=== PATIENT | male | born 1985 | race Caucasian/White ===

== ENCOUNTER 2023-09-23 16:33 | Emergency (ER) | payer MEDICAID, SELFPAY ==
--- NOTE | ~2023-09-23 | XR_ITS ---
EXAMINATION: XR HAND, RIGHT CLINICAL INFORMATION: Injury. Pain. COMPARISON: None available. TECHNIQUE: PA, lateral, and oblique views of the right hand. FINDINGS: There is a comminuted nondisplaced fracture of the distal tuft of the third finger. No other fracture is seen. Joint spaces are normal. There is evidence of trauma to the soft tissues of the distal third and fourth fingers. XR/XR hand RT min 3V IMPRESSION: Comminuted fracture of the distal tuft of the third finger.
--- NOTE | 2023-09-23 16:42 | ED.GENADULT ---
HPI - General Adult General Chief complaint: Extremity Injury, Upper Stated complaint: R hand injury Time Seen by Provider: 09/23/23 17:48 Source: patient Mode of arrival: ambulatory Limitations: no limitations History of Present Illness HPI narrative: Patient is a 38 year old assigned male at with no reported medical history presenting to the emergency department today with right 3rd digit pain. Patient states that while he was playing basketball, a shot put ball came down from the hill above and smashed his fingers against the basketball as he was going to shoot the ball. Patient denies any head strike or loss of consciousness with the incident. Patient states that he does not know when his last tetanus shot was. Patient denies any dizziness, lightheadedness, abdominal pain, nausea, vomiting, fever, chills, blurry vision, double vision, loss of vision, chest pain, difficulty breathing, shortness of breath, back pain, night sweats, pain with urination, increased urinary frequency, increased urinary urgency, blood in his urine or stool, syncope or a near syncopal episode, bowel incontinence, bladder incontinence, bowel retention, bladder retention, or any other complaints at this time. Onset (ago): minute(s) Location: right (3rd finger) Severity: mild Severity scale (1-10): 4 Quality: aching Pain Consistency: constant Relieving factors: immobilization Exacerbating factors: movement Associated symptoms: denies other symptoms Treatments prior to arrival: none Related Data Previous Rx's ?Medication ?Instructions ?Recorded amoxicillin 875 mg-potassium 1 tab PO BID 10 days #20 tabs 09/23/23 clavulanate 125 mg tablet Allergies Allergy/AdvReac Type Severity Reaction Status Date / Time No Known Allergies Allergy Verified 09/23/23 16:46 Review of Systems Constitutional: Constitutional: Reports no additional constitutional complaints, Denies chills, Denies fever(s) and Denies night sweats Eyes: Eyes: Reports no additional eye complaints, Denies blurry vision, Denies change in vision, Denies diplopia, Denies eye discharge, Denies loss of vision and Denies eye pain ENT: Denies dizziness Cardiovascular: Cardiovascular: Reports no additional cardiovascular complaints, Denies chest pain, Denies lightheadedness, Denies Loss of Consciousness and Denies dyspnea Respiratory: Respiratory: Reports no additional respiratory complaints and Denies dyspnea Gastrointestinal: Gastrointestinal: Reports no additional gastrointestinal complaints, Denies abdominal pain, Denies melena, Denies hematochezia, Denies change in bowel habits and Denies change in stool character Genitourinary: Genitourinary: Reports no additional male genitourinary complaints, Denies hematuria, Denies oliguria, Denies difficulty urinating, Denies dysuria, Denies urinary frequency, Denies urinary hesitancy, Denies urinary incontinence and Denies urinary urgency Musculoskeletal: Musculoskeletal: Reports no additional musculoskeletal complaints, Denies numbness and Denies tingling Comments: right 3rd digit injury / pain Neurologic: Denies dizziness, Denies loss of vision, Denies numbness and Denies tingling Psychiatric: Psychiatric: Reports no additional psychiatric complaints Endocrine: Endocrine: Reports no additional endocrine complaints Hematologic/Lymphatic: Hematologic/Lymphatic: Reports no additional hematologic/lymphatic complaints Allergic/Immunologic: Allergic/Immunologic: Reports no additional allergic/immunologic complaints PMFSH Past Medical History Attestation statement: The following information was validated with the patient. Source: old records reviewed and nursing notes reviewed Social History Social History Smoked in Last 30 Days: No Use of substances other than those prescribed or required for medical reasons: No Advance Directives: No Advance Directives Information Provided: No Do you have a plan to hurt others: No Plan Physical Exam ED Vital Signs: Vital Signs - 24 hr 09/23/23 16:44 09/23/23 19:10 09/23/23 19:22 Temperature 96.4 F L 97.8 F 97.8 F Pulse Rate 70 70 70 Respiratory Rate 18 20 20 Blood Pressure 121/80 124/80 124/80 Pulse Oximetry 100 100 100 Oxygen Delivery Method Room Air Room Air Room Air BMI result Body Mass Index 28.3 Const General: cooperative, no acute distress, alert and awake Nutritional Appearance: well nourished Orientation/consciousness: patient oriented x3 Limitations: no limitations HENMT Head: Yes normal to inspection and Yes atraumatic Ears: hearing grossly normal bilaterally and external ears normal General nose exam: Normal external nose present, no nasal discharge noted and no epistaxis Face and sinus: Yes normal facial exam, No abrasion and No laceration Mouth: Normal oral and palatal mucosa present, no drooling and no muffled voice Eyes General: appearance normal, both eyes and all related structures Periorbital: periorbital findings normal Eyelids: Yes eyelids normal Conjunctivae: conjunctivae normal Pupils: Equal, round and reactive pupils present EOM: EOMs intact bilaterally Neck Neck: Yes normal visual inspection, Yes full ROM and Yes no lymphadenopathy Chest Chest palpation & inspection: normal inspection of the chest Resp Effort & Inspection: normal respiratory effort and able to speak in complete sentences GI Inspection: Yes normal to inspection Neuro General: patient oriented x3 and moves all extremities Cranial nerves: Yes Equal, round and reactive pupils present Cognition (Neuro): normal cognition Motor exam (neuro): 5/5 motor strength present throughout Sensory Exam: Normal double simultaneous stimulation for sensation Coordination: [id number] test normal Extrem Other: right 3rd digit bruising and swelling with a small laceration on the palmar aspect of the 3rd digit tip General: Yes full ROM and Yes capillary refill normal Psych Appearance: grossly normal Mental Status: mental status grossly normal Affect: normal affect Attitude: cooperative Thought process: Normal thought process present Thought content: Normal thought content present Insight: Good insight present (Psych) Course Course Course Narrative: RME performed by Raven Dean PA-C. Patient is a 38 year old assigned male at presenting to the emergency department with right 3rd finger injury. Patient states that while he was playing basketball, a shot put ball came down from the hill above and smashed his fingers against the basketball as he was going to shoot the ball. Patient denies any loss of consciousness with the incident. Patient states that he does not know when his last tetanus shot was. Detailed physical exam and review of systems are deferred to the mechanical engineering specialist. Imaging ordered. Patient placed back in the waiting room pending room availability and results. Medications Administered Discontinued Medications Generic Name Dose Route Start Last Admin Trade Name Freq PRN Reason Stop Dose Admin Acetaminophen 975 mg 09/23/23 16:44 09/23/23 16:56 Acetaminophen 325 Mg Tablet PO 09/23/23 16:45 975 mg ONCE ONE Administration Diphtheria/Tetanus/Acell Pertussis 0.5 ml 09/23/23 16:43 09/23/23 17:45 Diphth,Pertus(Acell),Tet Adult 0.5 Ml Syringe IM 09/23/23 16:44 0.5 ml .ONCE ONE Administration Oxycodone HCl 5 mg 09/23/23 19:08 09/23/23 19:16 Oxycodone Hcl Immed Release 5 Mg Tablet PO 09/23/23 19:09 5 mg ONCE ONE Administration Procedures Laceration Laceration 1: Site: other (3rd digit) Side (If applicable): right Size (cm): 0.5 Description: linear Depth: simple, single layer Pre-repair: irrigated extensively and deep structures intact Skin layer closed with: other (dermabond) Size (cm): other (dermabond) Technique: other (dermabond) Medical Decision Making Medical Decision Making MDM Narrative: Patient is a 38 year old assigned male at with no reported medical history presenting to the emergency department today with a right 3rd digit injury. Patient's physical exam was as noted in the physical exam portion of this note. Patient's right hand x-ray showed a comminuted fracture of the distal tuft of the right 3rd finger. I explained my physical exam findings as well as all test results to the patient. I answered all questions asked by the patient. Patient's laceration was not gaping and did not require manual closure. I repaired the area with dermabond, without incident. Patient's PMS was intact prior to and after dermabond placement. Patient's right 3rd digit was splinted, without incident. Patient's PMS was intact prior to and after splint. I stressed the importance of the patient taking his medication as prescribed. I stressed the importance of the patient following up with his primary care provider and an orthopedic provider. I stressed the importance of the patient returning to the emergency department immediately if his symptoms were to worsen or if he were to develop any dizziness, shortness of breath, difficulty breathing, chest pain, blurry vision, loss of vision, nausea, vomiting, abdominal pain, fever, chills, back pain, or any other complaints. Patient verbalized agreement and understanding with this treatment plan and discharge. Differential Diagnosis Differential Diagnoses: The differential diagnosis associated with the presentation includes Finger fracture Finger injury Finger laceration Crush injury Admission/Observation Consideration of admission/observation: Escalation of care including admission/observation considered Patient would have been admitted to the hospital had his work up had any findings where hospital admission was appropriate and his clinical presentation warranted hospital admission. Independent Interpretation I performed an independent interpretation of an: Plain X-Ray Interpretation: My interpretation is in agreement with the radiologist's impression of this imaging study. EXAMINATION: XR HAND, RIGHT CLINICAL INFORMATION: Injury. Pain. COMPARISON: None available. TECHNIQUE: PA, lateral, and oblique views of the right hand. FINDINGS: There is a comminuted nondisplaced fracture of the distal tuft of the third finger. No other fracture is seen. Joint spaces are normal. There is evidence of trauma to the soft tissues of the distal third and fourth fingers. XR/XR hand RT min 3V IMPRESSION: Comminuted fracture of the distal tuft of the third finger. Dictated By: Norma Bourne MD Signed By: Electronically signed by Norma Bourne MD 09/23/23 0929 Radiology Impression Discussion of test interpretation with radiology: I have reviewed the radiologist's reading. Prescription Management I considered prescription management with: Antibiotic (patient prescribed an antibiotic for his right 3rd digit open fx) Discharge Plan Discharge Clinical Impression: Finger fracture, Finger laceration Patient Disposition: Home, Self-Care Instructions: Finger Fracture (ED), Finger Laceration (ED), Skin Adhesive Care (ED) Additional Instructions: Leave your splint on until you follow up with orthopedics. Do NOT get the affected area wet. Take your antibiotic as prescribed. Follow up with your primary care provider and your orthopedic provider. Return to the emergency department immediately if your symptoms worsen or if you develop any dizziness, shortness of breath, difficulty breathing, chest pain, blurry vision, loss of vision, nausea, vomiting, abdominal pain, fever, chills, back pain, or any other complaints. Prescriptions: New amoxicillin-pot clavulanate 875-125 mg tablet 1 tab PO BID 10 Days Qty: 20 0RF Referrals: [facility] [place] Family Medicine [Provider Group] (Call to establish and follow up with a primary care provider. If you already have a primary care provider, please follow up with them.) [facility] [Provider Group] [facility] [place] [facility] [Provider Group] [facility] [Provider Group] (Call to establish and follow up with the orthopedic team.) Interventions: ED Discharge Assessment Last Done: 09/23/23 19:22 Discharge Date/Time: 09/23/23 19:23 Print Language: Tunisian
[2023-09-23 16:44] VITALS: BP 121/80; PULSE 70; RESP 18; TEMP 35.8; O2SAT 100; BMI 28.3
[2023-09-23] MEDS: Acetaminophen 325 MG TABLET 975 MG PO (16:56)
[2023-09-23] MEDS: Diphth,Pertus(ACell),Tet Adult 0.5 ML SYRINGE IM (17:45)
[2023-09-23 19:10] VITALS: BP 124/80; PULSE 70; RESP 20; TEMP 36.6; O2SAT 100
[2023-09-23] MEDS: oxyCODONE HCl Immed Release 5 MG TABLET PO (19:16)
[2023-09-23 19:22] VITALS: BP 124/80; PULSE 70; RESP 20; TEMP 36.6; O2SAT 100
== END 2023-09-23 19:23 | disposition home or self-care (01) ==
PROVIDERS: Emergency Provider Internal Medicine
DX: S62.662B Nondisplaced fracture of distal phalanx of right middle finger, initial encounter for open fracture (principal); S61.212A Laceration without foreign body of right middle finger without damage to nail, initial encounter; W21.05XA Struck by basketball, initial encounter; Y93.67 Activity, basketball; Y92.9 Unspecified place or not applicable; Y99.9 Unspecified external cause status; Z23 Encounter for immunization
CPT/HCPCS: 12001; 29130; 73130; 90471; 90715; 99284